=== PATIENT | male | born 1975 | race Caucasian/White ===

== ENCOUNTER → 2019-10-12 | Outpatient (CLI) | payer OTHER ==
[~2019-10-12] MED LIST: ACET325T9 PO; BACL10TA PO; GABA600T7 PO; KRIL1CAP29 PO; METH-38 PO; MULT-697 PO; PIRO20CA2 PO; TRAM50TA PO
--- NOTE | 2019-10-13 01:11 | PAIN ---
DATE OF SERVICE: 10/12/2019 INITIAL CONSULTATION FOR PAIN CLINIC CHIEF COMPLAINT: Neck and right greater than left upper extremity pain. SECONDARY COMPLAINT: Low back and right greater than left lower extremity pain. 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 The patient has had physical therapy both at [facility] in [place] and at [facility] in [place] as recently as last month and chiropractic treatment about 2 months ago and doing exercise currently and continuously as well as working out and stretching. The patient reports the pain is getting worse in the base of the neck as his chief complaint and right upper extremity and left upper extremity radiating to the upper arms with some numbness and tingling in the hands. The patient reports if he is lying down, he can ahold his head in a certain position, it cause both of his hands and fingers to tingle. The patient reports it awakens him up from sleep at night at least once or twice, does not affect his bowel or bladder control, but does affect his ability to walk with low back and leg pain. The patient reports disability rating from 0-10, 10 being the worst, is a 3 with family home responsibilities, social activity, sexual behavior, 4 with recreation, 5 with occupational activities and 1 with self-care and 1 with life support activities. The patient did have MRI scans of both his cervical and lumbar spine, however, those are not available at time of this dictation. The patient describes the pain as constant, sharp, stabbing, becoming more numbness and radiation into the arm and hand as well as the lower extremities with numbness and cramping in the back and the neck. PAST MEDICAL HISTORY: Significant for hypertension, chewing tobacco use, arthritis, headaches. PREVIOUS SURGERY: Include right knee arthroscopy, wisdom teeth extraction and tonsillectomy. CURRENT MEDICATIONS: Include piroxicam, Robaxin, baclofen, tramadol, acetaminophen, Centrum vitamins, Krill oil, and gabapentin. ALLERGIES: THE PATIENT IS ALLERGIC TO AMPICILLIN AND PHENERGAN. FAMILY HISTORY: Significant for cancer, heart disease and degenerative spine disease. SOCIAL HISTORY: The patient drinks about 1 scotch a week or twice a week, does not smoke, but uses chewing tobacco. Denies any illegal, illicit or recreational drugs. 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 REVIEW OF SYSTEMS: The patient's review of systems is positive for those items mentioned in history of present illness. All systems reviewed and otherwise negative. It is complete, full and well documented on the patient's chart. PHYSICAL EXAMINATION: VITAL SIGNS: The patient's blood pressure 154/92, pulse 64, respirations 16, temperature 97.3 degrees Fahrenheit, height is 6 feet 2 inches, weight is 237 pounds. GENERAL: The patient is awake, alert, oriented, appropriate, very pleasant demeanor. HEENT: Head shows normocephalic, atraumatic. Extraocular movements are intact and symmetrical. Oral cavity shows mucous membranes moist and pink. Dentition is intact. NECK: Shows anterior throat supple without palpable lymphadenopathy noted. Swallow reflex symmetrical. CHEST: Shows normal on inspection. Breath sounds clear to auscultation bilaterally. HEART: Shows S1, S2 clear. No murmurs auscultated. ABDOMEN: Soft, nontender, nondistended. No palpable organomegaly is noted. No rebound or guarding demonstrated. BACK: Shows spine grossly in the midline, normal-appearing cervical lordotic curvature and thoracic kyphotic curvature and lumbar lordotic curvature. Patient's neck shows full rotational motion of cervical spine, both laterally greater than 45 degrees closer to 90 degrees as well as full extension, full forward flexion without significant pain reported, but with some moderate tingling in the shoulders and hands with extension of the spine at about 45 degrees from neutral. This is relieved with further extension and with full forward flexion, which he performs chin to chest without difficulty. EXTREMITIES: The patient's upper extremities show deep tendon reflexes 2+ in the biceps and triceps tendons. Strength is 5/5 with firer kiln strength, bicep and tricep flexion. Peripheral pulses are 2+ radial. No peripheral edema is noted. Shoulder shrug is strong and intact as is abduction of shoulder at 90 degrees without loss of strength on resistance with either of these maneuvers. The patient's lower extremities show deep tendon reflexes 2+ in the patellar, 1+ tendo-calcaneus tendons. Motor exam is approximately 4 on a scale of 5, but symmetrical with dorsiflexion, extension, quadriceps and hamstring flexion. Peripheral pulses are 1+ posterior tibia. No peripheral edema is noted. Lower extremities are warm and dry to touch, equal in color and appearance. Straight leg raise noted to be negative for reproduction of radicular symptoms bilaterally. Gaenslen's and Sonido's maneuvers are negative bilaterally as well. The patient is able to stand, stand on his toes without difficulty or loss of balance, walks with a normal appearing gait, does not appear to favor the right or left lower extremity significantly while walking. Skin: Shows warm and dry, good turgor. No edema. No sores, rashes or bruising throughout. IMPRESSION: 1. This is a 44-year-old male with approximate 4-year history of pain, increasing at base of the neck, upper extremities in a radicular fashion as well as low back and lumbar radicular symptoms in the lower extremities. 2. Hypertension. 3. Arthritis. PLAN: Options were discussed with the patient including conservative medical managements, continued physical therapies and interventional techniques. He would like to pursue interventional techniques. We will wait for preauthorization with his insurance provider and will start with a cervical epidural steroid injection as his chief complaint is of cervical radicular pain bilaterally at the C5-C6 dermatomal levels. Eventually if improve, we do discuss lumbar epidural steroid injection at the L4-L5 level and again pending MRI scan reports, which have been requested at the time of this dictation. Patient will be given Medrol Dosepak in the meantime. The patient was given instruction as well as side effects to be aware of with the medication and will follow up in approximately 1 week to plan on cervical epidural steroid injection on return. BERTHA DIAZ MD DR: MATY/carole JOB#: [id number] / [id number]
== END | disposition home or self-care (01) ==
LOC: PNCL 13:26
PROVIDERS: ATTEND Anesthesiology
DX: M54.2 Cervicalgia (principal); M79.641 Pain in right hand; M79.642 Pain in left hand; I10 Essential (primary) hypertension; M19.90 Unspecified osteoarthritis, unspecified site; Z87.891 Personal history of nicotine dependence; Z79.899 Other long term (current) drug therapy; Z88.1 Allergy status to other antibiotic agents; Z88.8 Allergy status to other drugs, medicaments and biological substances
CPT/HCPCS: G0463

== ENCOUNTER → 2019-10-26 | Outpatient (CLI) | payer OTHER ==
[~2019-10-26] MED LIST changes: +IOHEXOL 180 MG/ML 10 ML VIAL. ONE; +methylPREDNISolone ACETATE 40 MG/ML VIAL. ONE; +methylPREDNISolone ACETATE 80 MG/ML VIAL. ONE
--- NOTE | 2019-10-26 23:54 | PAIN ---
DATE OF SERVICE: 10/26/2019 PROGRESS NOTE FOR PAIN CLINIC DIAGNOSES: 1. Cervical radiculopathy with cervical degenerative disk disease. 2. Lumbar radiculopathy with lumbar degenerative disk disease. HISTORY OF PRESENT ILLNESS: The patient is a 44-year-old male who returns for followup status post initial evaluation and preauthorization for cervical epidural steroid injection. The patient reports he has still significant pain in the base of the neck, right and left shoulders, more on the left than the right, but present bilaterally. The patient reports right arm hurts more than the left side with some radiating pain into the right biceps still. The patient reports no new motor or sensory deficits, no new changes. The patient rates his pain as a 9 on a scale of 10 at its worst over the past week, 6 on average, 3 at its least and is a 6 today. The patient reports it is sharp, shooting, burning, stabbing, becoming more constant in the upper extremities, especially on the right arm. The patient reports no new motor or sensory deficits or other complaints. PHYSICAL EXAMINATION: VITAL SIGNS: The patient's blood pressure is 141/102, pulse 85, respirations 20, temperature 98.0 degrees Fahrenheit, height is 6 feet 2 inches, weight is 236 pounds. GENERAL: The patient is awake, alert, oriented, appropriate, very pleasant demeanor. HEENT: Shows normocephalic, atraumatic. Extraocular movements are intact and symmetrical. Oral cavity: Mucous membranes moist and pink. Dentition is intact. NECK: Shows anterior throat supple without palpable lymphadenopathy noted. Swallow reflex symmetrical. CHEST: Shows normal on inspection. Breath sounds are clear bilaterally. HEART: Shows S1, S2 clear. No murmurs auscultated. ABDOMEN: Soft, nontender, nondistended. SPINE: Back shows spine grossly in the midline. Cervical paraspinous muscle shows symmetrical on inspection, with palpation shows some moderate tenderness diffusely inferior aspect of the cervical paraspinous musculature as well as the superior medial trapezius bilaterally without radiation. The patient shows good rotational motion of cervical spine, both laterally as well as extension and flexion without difficulty. Lumbar spine shows midline spine as well with paraspinous musculature symmetrical on inspection, with palpation shows some moderate tenderness diffusely in the middle and lower distribution of the paraspinous muscles, but without radiation. The patient has good rotational motion of lumbar spine, both laterally as well as extension and flexion without significant pain. EXTREMITIES: Upper extremities show deep tendon reflexes 2+ in the biceps and triceps tendons. 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 The patient's lower extremities show deep tendon reflexes 2+ in the patellar, 1+ tendo-calcaneus tendons. Motor exam is approximately 4 on a scale of 5, but symmetrical with dorsiflexion, extension and quadriceps and hamstring flexion bilaterally. Peripheral pulses are 2+ radial, 1+ posterior tibial. PLAN: Options were discussed with the patient. The patient's old chart was reviewed as his current medication regimen updated. Current review of systems updated today as well. We will proceed with a cervical epidural steroid injection today with fluoroscopic guidance. Risks were again discussed including, but not limited to bleeding, infection, possibility of epidural hematoma, subsequent neurological compromise, dural puncture, headaches, spinal cord and/or nerve damage, side effects of steroid medication and poor results regarding pain control. The patient understands and wished to proceed. The patient will return to clinic in approximately 2 weeks for followup. He was counseled on return appointment, activity level and side effects to be aware of. DIAGNOSIS: Cervical radiculopathy with cervical degenerative disk disease. PROCEDURE: Cervical epidural steroid injection with translaminar approach at C6-C7 level using C-arm fluoroscopic guidance under sterile prep and drape using local anesthetic. MEDICATION INJECTED: A total of 120 mg of Depo-Medrol plus 5 mL of preservative-free normal saline and 2 mL of contrast. CONDITION AT DISCHARGE: Stable. The patient tolerated the procedure well, had no complications. BERTHA DIAZ MD DR: MATY/carole JOB#: [id number] / [id number]
== END ==
LOC: PNCL 12:40
PROVIDERS: ATTEND Anesthesiology
DX: M50.123 Cervical disc disorder at C6-C7 level with radiculopathy (principal); M51.16 Intervertebral disc disorders with radiculopathy, lumbar region
CPT/HCPCS: 62321; J1030; J1040; Q9965

== ENCOUNTER → 2019-11-09 | Outpatient (CLI) | payer OTHER ==
[~2019-11-09] MED LIST changes: -IOHEXOL 180 MG/ML 10 ML VIAL. ONE; -methylPREDNISolone ACETATE 40 MG/ML VIAL. ONE; -methylPREDNISolone ACETATE 80 MG/ML VIAL. ONE
--- NOTE | 2019-11-09 21:02 | PAIN ---
DATE OF SERVICE: 11/09/2019 PROGRESS NOTE FOR PAIN CLINIC DIAGNOSES: 1. Cervical radiculopathy with cervical degenerative disk disease. 2. Lumbar radiculopathy with lumbar degenerative disk disease. HISTORY OF PRESENT ILLNESS: The patient is a 44-year-old male who returns for followup status post cervical epidural steroid injection x 1. The patient reports about 70% improvement with the neck. Still some tightness in the right base of the neck and right shoulder, but doing much better with increased activity, greater distance walking, doing activities at work and at home with greater ability. The patient reports that he is sleeping well about 7 hours or so at night, but his chief complaint today is low back pain and bilateral lower extremity pain. The patient reports it is radiating into bilateral posterior gluteus, posterior thighs, into the right and left anterior thighs bilaterally, worse with walking and standing. The patient reports it is stabbing pain, it is aching, sharp, radiating, on and off in intensity, worse with activity, better with sitting or lying down, does not awaken him from sleep significantly. The patient reports no new motor or sensory deficits, no new bowel or bladder incontinence or other complaints. Reports now that his neck is doing much better, his back and legs are much more noticeable. The patient rates the pain as 7 on a scale of 10 at its worst over the past week, 5 on average, 2 at its least and is a 5 today. PHYSICAL EXAMINATION: VITAL SIGNS: The patient's blood pressure 145/101, pulse 61, respirations 16, temperature 98.4 degrees Fahrenheit, height is 6 feet 2 inches, weight is 232 pounds. GENERAL: The patient is awake, alert, oriented, appropriate, very pleasant demeanor. HEENT: Head shows normocephalic, atraumatic. Extraocular movements are intact and symmetrical. Oral cavity: Mucous membranes moist and pink. Dentition is intact. NECK: Shows anterior throat supple without palpable lymphadenopathy noted. Swallow reflex symmetrical. CHEST: Shows normal on inspection. Breath sounds clear to auscultation bilaterally. HEART: Shows S1, S2 clear. No murmurs auscultated. ABDOMEN: Soft, nontender, nondistended. No palpable organomegaly is noted. No rebound or guarding demonstrated. BACK: Shows spine grossly in the midline. Normal appearing thoracic kyphosis and cervical lordotic curvature. The patient's cervical paraspinous muscle shows symmetrical on inspection, on palpation shows some moderate tenderness diffusely, but only diffusely without significant radiation. EXTREMITIES: The patient's upper extremities show deep tendon reflexes at 2+ in the biceps and triceps tendons. 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 The patient's lower extremities show deep tendon reflexes 2+ in the patellar, 1+ tendo-calcaneus tendons. Motor exam is strong with approximately 4 on a scale of 5, but equal and symmetrical dorsiflexion, extension, quadriceps and hamstring flexion. Peripheral pulses are 1+ posterior tibial, 2+ radial. No peripheral edema is noted. Options were discussed with the patient. The patient's old chart was reviewed as his current medication regimen updated. Current review of systems updated today as well. We will proceed with preauthorization for lumbar epidural steroid injection as he has significant at L4-L5 dermatomal distribution radiculopathy bilaterally and is doing much better with his cervical spine. The patient will wait for preauthorization. In the meantime, we will maintain stretching and strength exercises in the low back and bilateral lower extremities as well as the upper back and neck, also apply heat to the neck with stretching on the right side as well. BERTHA DIAZ MD DR: MATY/carole JOB#: [id number] / [id number]
== END | disposition home or self-care (01) ==
LOC: PNCL 13:05
PROVIDERS: ATTEND Anesthesiology
DX: M51.16 Intervertebral disc disorders with radiculopathy, lumbar region (principal); M50.10 Cervical disc disorder with radiculopathy, unspecified cervical region; M79.604 Pain in right leg; M79.605 Pain in left leg
CPT/HCPCS: G0463

== ENCOUNTER → 2019-11-17 | Outpatient (CLI) | payer OTHER ==
[~2019-11-17] MED LIST changes: +IOHEXOL 180 MG/ML 10 ML VIAL. ONE; +methylPREDNISolone ACETATE 40 MG/ML VIAL. ONE; +methylPREDNISolone ACETATE 80 MG/ML VIAL. ONE
--- NOTE | 2019-11-17 21:27 | PAIN ---
DATE OF SERVICE: 11/17/2019 PROGRESS NOTE FOR PAIN CLINIC DIAGNOSES: 1. Cervical radiculopathy with cervical degenerative disk disease. 2. Lumbar radiculopathy with lumbar degenerative disk disease. HISTORY OF PRESENT ILLNESS: The patient is a 44-year-old male, who returns for followup status post cervical epidural steroid injection x 1 with very good results, about 75% improvement. The patient reports his main complaint is back and lower extremities, posterior gluteus, posterolateral thigh, lateral anterior thigh, and anterior medial thigh. The patient reports it is aching and sharp in the lumbar distribution, some aching in the neck as well. The patient reports there is pain in the back and legs; is a 7 on a scale of 10 at its worst over the past week, 3 on average, 2 at its least and is a 2 today. The patient reports it is worse with walking, standing, changing positions. We are awaited for preauthorization with his insurance provider and he has obtained this now and would like to proceed with a lumbar epidural steroid injection. The patient reports the pain does generally not awaken him from sleep at night, better with sitting or lying down, worse with walking and standing. Again, no motor loss, no bowel or bladder incontinence. PHYSICAL EXAMINATION: VITAL SIGNS: The patient's blood pressure 144/99, pulse 75, respirations 18, temperature is 98.6 degrees Fahrenheit, height is 6 feet 2 inches, weight is 229 pounds. GENERAL: The patient is awake, alert, oriented, appropriate, very pleasant demeanor. HEENT: Head shows normocephalic, atraumatic. Extraocular movements are intact and symmetrical. Oral cavity: Mucous membranes are moist and pink. Dentition is intact. NECK: Shows anterior throat supple without palpable lymphadenopathy noted. Swallow reflex symmetrical. CHEST: Shows normal on inspection. Breath sounds are clear to auscultation bilaterally. HEART: Shows S1, S2 clear. No murmurs auscultated. ABDOMEN: Soft, nontender, nondistended. No palpable organomegaly is noted. No rebound or guarding demonstrated. BACK: Shows spine grossly in the midline, normal-appearing thoracic kyphosis, cervical lordotic curvature and lumbar lordotic curvature. Lumbar paraspinous muscle shows symmetrical on inspection, on palpation shows some mild tenderness diffusely in the low lumbar distribution only, but without radiation. The patient's lower extremities show deep tendon reflexes at 2+ in the patellar and 1+ tendo-calcaneus tendons. Motor exam is strong with approximately 4 on a scale of 5, but equal dorsiflexion, extension, quadriceps and hamstring flexion. EXTREMITIES: The patient's upper extremities show deep tendon reflexes 2+ in the biceps and triceps tendons. 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 Peripheral pulses are 2+ in radial distribution. No peripheral edema bilaterally. Options were discussed with the patient. The patient's old chart was reviewed as his current medication regimen updated. Current review of systems updated today as well. We will proceed with lumbar epidural steroid injections, the first in this series using C-arm fluoroscopic guidance. Risks were again discussed, including but not limited to bleeding, infection, possibility of epidural hematoma, subsequent neurological compromise, dural puncture, headaches, spinal cord and/or nerve damage, side effects of steroid medication and poor results regarding pain control. The patient understands and wished to proceed. The patient will return to the clinic in approximately 2 weeks for followup. He was counseled as to return appointment, activity level and side effects to be aware of. DIAGNOSES: Lumbar radiculopathy with lumbar degenerative disk disease. PROCEDURE: Lumbar epidural steroid injection in translaminar approach L4-L5 level using C-arm fluoroscopic guidance under sterile prep and drape using local anesthetic. MEDICATION INJECTED: A total of 120 mg Depo-Medrol plus 10 mL of preservative-free normal saline and 2 mL of contrast. CONDITION AT DISCHARGE: Stable. The patient tolerated procedure well, had no complications. BERTHA DIAZ MD DR: MATY/carole JOB#: [id number] / [id number]
== END | disposition home or self-care (01) ==
LOC: PNCL 13:29
PROVIDERS: ATTEND Anesthesiology
DX: M51.16 Intervertebral disc disorders with radiculopathy, lumbar region (principal); M50.10 Cervical disc disorder with radiculopathy, unspecified cervical region; Z98.890 Other specified postprocedural states; Z88.1 Allergy status to other antibiotic agents; Z88.8 Allergy status to other drugs, medicaments and biological substances
CPT/HCPCS: 62323; J1030; J1040; Q9965

== ENCOUNTER → 2021-03-09 | Outpatient (CLI) | payer OTHER ==
[~2021-03-09] MED LIST changes: +AMLO-186 PO; -IOHEXOL 180 MG/ML 10 ML VIAL. ONE; -methylPREDNISolone ACETATE 40 MG/ML VIAL. ONE; -methylPREDNISolone ACETATE 80 MG/ML VIAL. ONE
--- NOTE | 2021-03-09 09:55 | PDOC ---
Progress Note - Pain Clinic Date of Service: DOS: DATE: 03/09/21 TIME: 09:51 Diagnosis: Dx: Cervical radiculopathy with cervical degenerative disc disease Lumbar radiculopathy with lumbar degenerative disc disease History or Present Illness: HPI: 45-year-old male returns for follow-up status post both cervical and lumbar epidural injections last seen October 2019 patient did very well with about a 70% improvement in the injections both in the neck and the low back patient reports now the low back is beginning to increase and has new findings of pain in the left lower extremity greater than right where it originally it was worse both sides. Patient reports his left side is significantly painful with walking standing changing position especially sitting for prolonged periods and is rating the posterior gluteus posterior lateral thigh lateral anterior thigh anteromedial thigh medial lower leg patient reports he is unable to sit for more than about 30 minutes without having to get up change positions sometimes lie down. 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 Patient reports is aching pain that sharp and stabbing at times in the low back radiating shooting in the left lower extremity and constant with prolonged positioning. Patient rates his pain a 7 on scale 10 is worse over the past week 5 on average 3 at its least is a 5 today patient describes the pain the base the neck and shoulders as well more on the right side which is secondary to the low back and left lower extremity pain. Patient has been taking tramadol only as needed as well as gabapentin and baclofen. Physical Exam: VS: Blood pressure is 137/93 pulse 52 respirations 16 temperature 97.8 F height is 6 feet 2 inches weight 223 pounds PE: PHYSICAL EXAMINATION: GENERAL: The patient is awake, alert, oriented, appropriate, very pleasant in demeanor HEENT: Shows normocephalic, atraumatic. Extraocular movements are intact and symmetrical. Oral cavity: Mucous membranes moist and pink. Dentition is intact. NECK: Shows anterior throat supple without palpable lymphadenopathy noted. Swallow reflex symmetrical. CHEST: Shows normal on inspection. Breath sounds are clear bilaterally, no rales rhonchi or wheezes auscultated. HEART: Shows S1, S2 clear. No murmurs auscultated. ABDOMEN: Soft, nontender, nondistended. BACK: Shows spine grossly in the midline. Normal-appearing cervical lordotic curvature. Cervical paraspinous muscles show symmetrical inspection, on palpation some moderate tenderness diffusely but only diffusely without significant radiation. Patient shows full rotation motion cervical spine with lateral as well as extension flexion without significant difficulty or pain rep orted. There is slightly increased thoracic kyphosis, some minor flattening of the lumbar lordotic curvature. Lumbar paraspinous muscles show symmetrical on inspection, on palpation shows some moderate tenderness diffusely throughout the upper, middle and lower distribution of the paraspinous muscles without specific trigger points, without radiation of pain. The patient has good rotational motion of the lumbar spine, both laterally as well as extension and flexion without significant difficulty. No tenderness over the spinous processes, sacrum or sacroiliac regions. EXTREMITIES: Lower extremities show deep tendon reflexes 2+ in the patellar and tendo calcaneus tendons. Motor exam is 5 on a scale of 5 with right dorsiflexion, extension, quadriceps and hamstring flexion and 5/5 on the left. Peripheral pulses are 1+ posterior tibial. No peripheral edema is noted bilaterally. Lower extremities are warm and dry to touch, equal in color and appearance. 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 Shoulder shrug strong and intact without loss of strength. SKIN: Shows warm and dry, good turgor. No edema. No sores, rashes or bruising throughout. Procedure: Procedure: Options were discussed with patient. Patient chart reviews his current medicat ion regimen updated current review of systems updated today as well. We will preauthorize patient for lumbar epidural steroid injection with fluoroscopic guidance. Patient with radicular pain at L4-5 dermatomal distribution, once preauthorized we'll plan on translaminar approach L4-5 level lumbar epidural steroid injection with fluoroscopic guidance. Medication Injected: Med Injected: None Condition at Discharge: Condition at Discharge: Condition at discharge is stable. BERTHA DIAZ MD Mar 09, 2021 09:55
== END | disposition home or self-care (01) ==
LOC: PNCL 09:09
PROVIDERS: ATTEND Anesthesiology
DX: M50.10 Cervical disc disorder with radiculopathy, unspecified cervical region (principal); M51.16 Intervertebral disc disorders with radiculopathy, lumbar region; Z79.899 Other long term (current) drug therapy; Z88.1 Allergy status to other antibiotic agents; Z88.8 Allergy status to other drugs, medicaments and biological substances
CPT/HCPCS: 99212; G0463

== ENCOUNTER → 2021-03-20 | Outpatient (CLI) | payer OTHER ==
[~2021-03-20] MED LIST changes: +IOHEXOL 180 MG/ML 10 ML VIAL. ONE; +methylPREDNISolone ACETATE 40 MG/ML VIAL. ONE; +methylPREDNISolone ACETATE 80 MG/ML VIAL. ONE
--- NOTE | 2021-03-20 08:49 | PDOC ---
Progress Note - Pain Clinic Date of Service: DOS: DATE: 03/20/21 TIME: 08:46 Diagnosis: Dx: Lumbar radiculopathy with lumbar degenerative disc disease Cervical radiculopathy with cervical degenerative disc disease History or Present Illness: HPI: 46-year-old male returns for follow-up status post evaluation and preauthorization for lumbar epidural steroid injection. Patient reports has had good results with this in the past about 70% improvement overall pain low back and left lower extremity greater than right but present bilaterally posterior gluteus lateral thigh anterior thigh medial thighs worse with walking standing changing positions better with sitting or laying down patient reports still waking her from sleep occasionally not every night. Patient also some pain the base of neck and shoulders but his main complaint is low back and lower extremity pain. Patient reports is an 8 on scale 10 is worse over the past week 5 on average/and is a 4 today. Patient describes the pain as aching and tight can be constant and severe with standing walking changing positions. She reports no loss of motor function no bowel or bladder incontinence Physical Exam: VS: Blood pressure is 136/101 pulse 75 respirations 18 temperature 98.1 F height is 6 feet 2 inches weight is 228 pounds PE: PHYSICAL EXAMINATION: GENERAL: The patient is awake, alert, oriented, appropriate, very pleasant in demeanor HEENT: Shows normocephalic, atraumatic. Extraocular movements are intact and symmetrical. Oral cavity: Mucous membranes moist and pink. Dentition is intact. NECK: Shows anterior throat supple without palpable lymphadenopathy noted. Swallow reflex symmetrical. CHEST: Shows normal on inspection. Breath sounds are clear bilaterally no rales rhonchi wheezes auscultated. HEART: Shows S1, S2 clear. No murmurs auscultated. ABDOMEN: Soft, nontender, nondistended, flat. No palpable organomegaly is noted. BACK: Shows spine grossly in the midline. Normal-appearing cervical lordotic curvature. Cervical paraspinous muscles show symmetrical with inspection, on palpation some moderate tenderness diffusely bilaterally without specific trigger points or radiation. Patient shows full rotation motion cervical spine both laterally as well as extension flexion without significant difficulty. There is slightly increased thoracic kyphosis, some minor flattening of the lumbar lordotic curvature. Lumbar paraspinous muscles show symmetrical on inspection, on palpation shows some moderate tenderness diffusely throughout the upper, middle and lower distribution of the paraspinous muscles without specific trigger points, without radiation of pain. The patient has good rotational motion of the lumbar spine, both laterally as well as extension and flexion without significant difficulty. No tenderness over the spinous processes, sacrum or sacroiliac regions. EXTREMITIES: Lower extremities show deep tendon reflexes 2+ in the patellar and tendo calcaneus tendons. Motor exam is 5 on a scale of 5 with right dorsifle xion, extension, quadriceps and hamstring flexion and 5/5 on the left. Peripheral pulses are 1+ posterior tibial. No peripheral edema is noted bilaterally. Lower extremities are warm and dry to touch, equal in color and appearance. SKIN: Shows warm and dry, good turgor. No edema. No sores, rashes or bruising throughout. Procedure: Procedure: Options were discussed with the patient. Patient chart was reviewed his his current medication regimen updated current view of systems updated today as well. We will proceed with a lumbar epidural steroid injection today with fluoroscopic guidance. Risks were discussed including but not limited to: Bleeding, infection, possibility of epidural hematoma and subsequent neurological compromise, dural puncture, headaches, spinal cord and/or nerve damage, side effects of steroid medication, and poor results regarding pain control. Patient understands and wished to proceed. Patient return to the clinic in approximately 2 weeks for follow-up, was counseled as to return appointment activity level and side effects to be aware of. Medication Injected: Med Injected: Procedure is lumbar epidural steroid injection under local anesthetic using sterile prep and drape at the L4-5 level using C-arm fluoroscopic guidance in both AP and lateral views medications injected is 120 mg Depo-Medrol +10mL preservative-free normal saline and 2 mL contrast- condition at discharge is stable patient tolerated procedure well had no complications. Condition at Discharge: Condition at Discharge: Condition at discharge stable, patient alert procedure well and had no complications. BERTHA DIAZ MD Mar 20, 2021 08:49
--- NOTE | 2021-03-20 08:50 | PDOC4 ---
Procedure Note: ICD 10 Code: ICD 10 Code: M 54.16 M 51.36 Procedure Note: Patient was consented for lumbar epidural steroid injection. Risks were discussed including but not limited to: Bleeding, infection, possibility of epidural hematoma and subsequent neurological compromise, dural puncture, headaches, spinal cord and/or nerve damage, side effects of steroid medication, and poor results regarding pain control. Patient understands and wished to proceed. Procedure is lumbar epidural steroid injection under local anesthetic using sterile prep and drape at the L4-5 level using C-arm fluoroscopic guidance in both AP and lateral views medications injected is 120 mg Depo-Medrol +10mL preservative-free normal saline and 2 mL contrast- condition at discharge is stable patient tolerated procedure well had no complications. BERTHA DIAZ MD Mar 20, 2021 08:50
== END | disposition home or self-care (01) ==
LOC: PNCL 08:05
PROVIDERS: ATTEND Anesthesiology
DX: M51.16 Intervertebral disc disorders with radiculopathy, lumbar region (principal); M50.10 Cervical disc disorder with radiculopathy, unspecified cervical region; Z79.899 Other long term (current) drug therapy; Z88.1 Allergy status to other antibiotic agents; Z88.8 Allergy status to other drugs, medicaments and biological substances
CPT/HCPCS: 62323; J1030; J1040; Q9965

== ENCOUNTER → 2021-04-10 | Outpatient (CLI) | payer OTHER ==
[~2021-04-10] MED LIST changes: +AMLO-187 PO
--- NOTE | 2021-04-10 09:21 | PDOC ---
Progress Note - Pain Clinic Date of Service: DOS: DATE: 04/10/21 TIME: 09:18 Diagnosis: Dx: Cervical radiculopathy with cervical degenerative disease Lumbar radiculopathy with lumbar degenerative disc disease History or Present Illness: HPI: 46-year-old male returns for follow-up status post lumbar epidural steroid injection x1. Patient reports about 70% improvement is doing very well until he fell about 3 days ago on some stairs at home increase in the pain in his back but also increasing pain his neck and left upper extremity patient reports his neck is a chief complaint now is a significant pain in the left arm radiating to the hand in the neck base of the neck on the right and the left side since the fall patient reports since not limiting his mobility significantly but is having difficulty with extension of the cervical spine right left lateral rotation is been more painful and difficulty sleeping waking her from sleep about every 3-4 hours patient rates his pain as 8 on scale 10 is worse in the past week 5-8 on average 4 to sleep and is a 5 today patient was aching sharp shooting into the left upper extremity can be radiating constant can be severe with tingling in the hands more on the left but also some on the right as well. Patient reports no new bowel or bladder incontinence. Physical Exam: VS: Blood pressure is 141/102 pulse 69 respirations 16 temperature 98.1 F weight 226 pounds PE: PHYSICAL EXAMINATION: GENERAL: The patient is awake, alert, oriented, appropriate, very pleasant in demeanor HEENT: Shows normocephalic, atraumatic. Extraocular movements are intact and symmetrical. Oral cavity: Mucous membranes moist and pink. Dentition is intact. NECK: Shows anterior throat supple without palpable lymphadenopathy noted. Swallow reflex symmetrical. CHEST: Shows normal on inspection. Breath sounds are clear bilaterally, distant but no rales or rhonchi. HEART: Shows S1, S2 clear. No murmurs auscultated. ABDOMEN: Soft, nontender, nondistended. No palpable organomegaly is noted. BACK: Shows spine grossly in the midline. Normal-appearing cervical lordotic curvature. Cervical paraspinous muscles show symmetrical inspection, on palpation some moderate tenderness diffusely in the bilateral middle and lower distribution the paraspinous muscle slightly more on the right than the left but present bilaterally without specific trigger points no difficulty with rotation motion both laterally as well as full extension full forward flexion. There is slightly increased thoracic kyphosis, some minor flattening of the lumbar lordotic curvature. Lumbar paraspinous muscles show symmetrical on inspection, on palpation shows some moderate tenderness diffusely throughout the upper, middle and lower distribution of the paraspinous muscles but without specific trigger points, without radiation of pain. The patient has good rotational motion of the lumbar spine, both laterally as well as extension and flexion without significant difficulty. EXTREMITIES: Lower extremities show deep tendon reflexes 2+ in the patellar and tendo calcaneus tendons. Motor exam is 5 on a scale of 5 with right dorsiflexion, extension, quadriceps and hamstring flexion and 5/5 on the left. Peripheral pulses are 1+ posterior tibial. No peripheral edema is noted bilaterally. Lower extremities are warm and dry to touch, equal in color and appearance. 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 Shoulder shrug strong and intact without loss of strength on resistance. SKIN: Shows warm and dry, good turgor. No edema. No sores, rashes or bruising throughout. Procedure: Procedure: Options were discussed with the patient. Patient's old chart reviewed his his current medication regimen updated current review of systems updated today as well. We will proceed with a cervical epidural steroid injection stable fluoroscopic guidance. Risks were discussed including but not limited to: Bleeding, infection, possibility of epidural hematoma and subsequent neurological compromise, dural puncture, headaches, spinal cord and/or nerve damage, side effects of steroid medication, and poor results regarding pain control. Patient understands and wished to proceed. Patient return to clinic in approximately 2 weeks for follow-up, was counseled as return appointment activity level and side effects to be aware of. Medication Injected: Med Injected: Procedure cervical epidural steroid injection at the C6-7 level, using local anesthetic under sterile prep and drape using C-arm fluoroscopic guidance under local anesthesia medications injected ;120 mg Depo-Medrol +5 mL normal saline and 2 mL contrast; condition at discharge is stable patient tolerated procedure well. and had no complications Condition at Discharge: Condition at Discharge: Condition at discharge stable, patient already procedure well and had no complications. BERTHA DIAZ MD Apr 10, 2021 09:21
--- NOTE | 2021-04-10 09:22 | PDOC4 ---
Procedure Note: ICD 10 Code: ICD 10 Code: M54.12 M50.30 Procedure Note: Patient was consented for cervical epidural steroid injection with fluoroscopic guidance. Risks were discussed including but not limited to: Bleeding, infection, possibility of epidural hematoma and subsequent neurological compromise, dural puncture, headaches, spinal cord and/or nerve damage, side effects of steroid medication, and poor results regarding pain control. Patient understands and wished to proceed. Procedure cervical epidural steroid injection at the C6-7 level, using local anesthetic under sterile prep and drape using C-arm fluoroscopic guidance under local anesthesia medications injected ;120 mg Depo-Medrol +5 mL normal saline and 2 mL contrast; condition at discharge is stable patient tolerated procedure well. and had no complications BERTHA DIAZ MD Apr 10, 2021 09:22
== END | disposition home or self-care (01) ==
LOC: PNCL 08:00
PROVIDERS: ATTEND Anesthesiology
DX: M50.10 Cervical disc disorder with radiculopathy, unspecified cervical region (principal); M51.16 Intervertebral disc disorders with radiculopathy, lumbar region; Z79.899 Other long term (current) drug therapy; Z88.1 Allergy status to other antibiotic agents; Z88.8 Allergy status to other drugs, medicaments and biological substances
CPT/HCPCS: 62321; J1030; J1040; Q9965